=== PATIENT | female | born 1990 | race Caucasian/White ===

== ENCOUNTER 2021-07-06 14:53 | Inpatient (IN) ==
[~2021-07-06 14:53] MED LIST: *HR* Nalbuphine 10 MG/ML AMPUL IV PRN; Azithromycin 500 MG in 0.9 % Sodium Chloride 250 ML IVPB PRN; EPHEDrine 50 MG/ML VIAL IVP PRN; Epidural Premix (fent/bupiv) 110 ML EP SCH; Famotidine 20 MG/2 ML VIAL IVP PRN; Lidocaine 1% 20 ML MDV INFILT PRN; Metoclopramide 10 MG/2 ML VIAL IVP PRN; Naloxone 0.4 MG/ML INJ IVP PRN; Ondansetron 4 MG/2 ML VIAL IVP PRN
[2021-07-06] MEDS ORDERED: Oxytocin 20 units/ LR 1000 mL 20 UNIT/1,000 ML BAG IVC SCH (15:00)
[2021-07-06] MEDS: Ringers Solution, Lactated 1,000 ML IVC SCH ×3 (16:28→20:47)
[2021-07-06 16:30] LABS: Basophils % 0.3 %; Eosinophils % 0.4 %; Hematocrit 34.3 % (35.3-44.9); Hemoglobin 10.6 g/dL (11.5-15.4); Immature Granulocytes % 0.4 % (0-4); Lymphocytes # 1.7 K/mcL (0.6-4.6); Lymphocytes % 17.4 %; Mean Corpuscular HGB Conc 30.9 g/dL (31.6-35.5); Mean Corpuscular Hemoglobin 24.3 pg (28.0-33.3); Mean Corpuscular Volume 78.7 fL (83.0-100.0); Mean Platelet Volume 10.3 fL (9.4-12.4); Monocytes # 0.8 K/mcL (0.0-1.3); Monocytes % 8.4 %; Neutrophils # 7.1 K/mcL (1.6-8.9); Platelet Count 301 K/mcL (140-400); Red Blood Count 4.36 M/mcL (3.82-4.97); Segmented Neutrophils % 73.1 %; White Blood Count 9.7 K/mcL (4.3-11.1)
[2021-07-06 16:32] LABS: Amphetamine Screen,Urine Negative ng/mL (Cutoff=1000); Barbiturate Screen,Urine Negative ng/mL (Cutoff=200); Benzodiazepines Screen,Urine Negative ng/mL (Cutoff=200); Cannabinoid Screen,Urine Negative ng/mL (Cutoff = 50); Cocaine Screen,Urine Negative ng/mL (Cutoff= 300); Opiate Screen,Urine Negative ng/mL (Cutoff=300); Phencyclidine Screen,Urine Negative ng/mL (Cutoff=25)
[2021-07-06 16:53] LABS: Influenza A PCR Negative (Negative); Influenza B PCR Negative (Negative); Resp. Syncytial Virus PCR Negative (Negative)
[2021-07-06 17:07] LABS: SARS-CoV-2 by PCR (In House) Negative (Negative)
[2021-07-06] MEDS ORDERED: Ropivacaine/PF 0.2% 20 ML VIAL ONE (17:14)
[2021-07-06] MEDS ORDERED: Ondansetron 4 MG/2 ML VIAL ONE (17:14)
[2021-07-06] MEDS ORDERED: Mag Hydrox/Al Hydrox/Simeth 30 ML UDC PO PRN (22:27)
[2021-07-06] MEDS ORDERED: 0.9 % Sodium Chloride 1,000 ML ONE (23:08)
[2021-07-07] MEDS ORDERED: Acetaminophen 325 MG TABLET PO SCH (00:37)
[2021-07-07] MEDS ORDERED: Ondansetron ODT 4 MG TAB.RAPDIS SL PRN (00:37)
[2021-07-07] MEDS ORDERED: Lanolin 7 G OINT...G. TP PRN (00:37)
[2021-07-07] MEDS ORDERED: Benzocaine/Menthol 56 GM AEROSOL SPRAY TP PRN (00:37)
[2021-07-07] MEDS ORDERED: Oxytocin 20 units/ LR 1000 mL 20 UNIT/1,000 ML BAG IVC ONE ×2 (00:37→00:44)
[2021-07-07] MEDS ORDERED: Oxytocin 20 units/ LR 1000 mL 20 UNIT/1,000 ML BAG IVC SCH (00:37)
[2021-07-07] MEDS: Ibuprofen 600 MG TABLET PO SCH ×3 (01:12→20:34)
[2021-07-07] MEDS: Prenatal Vit/FA 1 EACH TABLET PO SCH (08:16)
[2021-07-08] MEDS: Ibuprofen 600 MG TABLET PO SCH (07:26)
[2021-07-08] MEDS: Prenatal Vit/FA 1 EACH TABLET PO SCH (07:27)
[2021-07-08 08:27] VITALS: BP 104/78; PULSE 69; TEMP 98; O2SAT 97
== END 2021-07-08 13:08 | disposition home or self-care (01) | DRG 560 ==
LOC: 1NENULAB → 1NENUOBS 07-07 02:06
PROVIDERS: ADMIT Advanced Practice Midwife; ATTEND Advanced Practice Midwife